=== PATIENT | male | born 1950 | race Caucasian/White ===

== ENCOUNTER → 2021-09-17 | Outpatient (CLI) | payer OTHER, SELFPAY ==
[2021-09-17 10:24] LABS: Pathologist Comment May follow
[2021-09-17 11:19] LABS: Erythrocyte Sedimentation Rate 27 mm/hr (0-20)
[2021-09-17 11:22] LABS: Absolute Lymphocyte Count 1.41 X10^3/uL (0.83-4.51); Absolute Neutrophil Count 3.7 X10^3/uL (2.0-7.7); Basophil# 0.03 X10^3/uL; Basophil% 0.5 % (0-1); Eosinophil# 0.22 X10^3/uL; Eosinophils% 3.6 % (0-5); Hematocrit 43.5 % (40-54); Hemoglobin 14.4 g/dL (13.0-16.5); Lymphocyte # 1.41 X10^3/ul (0.83-4.51); Lymphocyte % 23.1 % (19-41); Mean Corp Hgb Conc 33.1 g/dL (32-36); Mean Corpuscular Hgb 29.3 pg (27.0-32.0); Mean Corpuscular Volume 88.6 fL (80-94); Monocyte# 0.73 X10^3/uL; Monocyte% 11.9 % (0-10); NRBC Flagged by Analyzer 0 % (0-5); Neutrophil % 60.6 % (47-70); Platelet Count 320 K/mm3 (150-450); RBC Distribution Width CV 13.7 % (11.6-14.6); RBC Distribution Width SD 44.4 fl (35.1-43.9); Red Blood Count 4.91 M/mm3 (4.6-6.2); White Blood Count 6.1 K/mm3 (4.4-11.0)
[2021-09-17 11:35] LABS: Synovial Fld Mononuclear WBC # 1.044 10^3/ul; Synovial Fld Polynuclear WBC # 0.347 10^3/uL
[2021-09-17 11:38] LABS: AUTO B FLUID DILUENT BKGD CT WBC <0.1 RBC <0.01 (W<.1,R<.01); Appearance /Synovial Fluid Sl Cl (CLEAR); Color / Synovial Fluid Yellow (Pale Yellow); Source / Synovial Fluid RIGHT KNEE
[2021-09-17 12:11] LABS: Lymph 18 %; Monocyte /Synovial Fluid 48 %; Neutrophil 24 % (0-25); Other Cell /Synovial Fluid 10 %
[2021-09-17 12:12] LABS: RBC /Synovial Fluid 87 /mm3 (0)
[2021-09-17 12:53] LABS: Body Fluid QC Type(s) BF1Q,BF2Q; Source- Body Fluid SYNOVIAL
[2021-09-18 12:17] LABS: Pathologist Review Reviewed
== END | disposition home or self-care (01) ==
LOC: LAB 10:16
PROVIDERS: PCP Orthopaedic Surgery; Referring Provider Physician Assistant; Visit Provider Physician Assistant
DX: M25.461 Effusion, right knee (principal); Z96.651 Presence of right artificial knee joint
CPT/HCPCS: 36415; 85025; 85652; 86140; 87015; 87070; 87075; 87101; 87116; 87205; 87206; 89050; 89051; 89060

== ENCOUNTER → 2022-04-24 | Outpatient (CLI) | payer OTHER, SELFPAY ==
[2022-04-24 12:42] LABS: Absolute Lymphocyte Count 1.16 X10^3/uL (0.83-4.51); Absolute Neutrophil Count 2.9 X10^3/uL (2.0-7.7); Basophil# 0.03 X10^3/uL; Basophil% 0.6 % (0-1); Eosinophil# 0.33 X10^3/uL; Eosinophils% 6.2 % (0-5); Hematocrit 45.5 % (40-54); Hemoglobin 14.6 g/dL (13.0-16.5); Lymphocyte # 1.16 X10^3/ul (0.83-4.51); Lymphocyte % 21.8 % (19-41); Mean Corp Hgb Conc 32.1 g/dL (32-36); Mean Corpuscular Hgb 28.3 pg (27.0-32.0); Mean Corpuscular Volume 88.3 fL (80-94); Mean Platelet Vol. 9.9 fl (6.2-12.0); Monocyte# 0.84 X10^3/uL; Monocyte% 15.8 % (0-10); NRBC Flagged by Analyzer 0 % (0-5); Neutrophil # 2.94 X10^3/uL (2.7-7.7); Neutrophil % 55.4 % (47-70); Platelet Count 304 K/mm3 (150-450); RBC Distribution Width CV 14.9 % (11.6-14.6); RBC Distribution Width SD 48.4 fl (35.1-43.9); Red Blood Count 5.15 M/mm3 (4.6-6.2); White Blood Count 5.3 K/mm3 (4.4-11.0)
[2022-04-24 12:59] LABS: Albumin, Serum 3.4 g/dL (3.2-5.0); Anion Gap 6 (5-15); BUN 19 mg/dL (7-18); BUN/Creat Ratio 26.8 RATIO (10-20); Calcium,Total 9.5 mg/dL (8.5-10.1); Chloride 107 mmol/L (98-107); Creatinine, Serum 0.71 mg/dL (0.70-1.30); EST Glomerular Filtration Rate 117 mL/min (>60); Est Glom Filt Rate - Afr Amer 141 mL/min (>60); Glucose 95 mg/dL (74-106); Potassium 4.2 mmol/L (3.5-5.1); Sodium Level 140 mmol/L (136-145)
== END | disposition home or self-care (01) ==
LOC: LAB 11:11
PROVIDERS: PCP Orthopaedic Surgery; Referring Provider Physician Assistant Surgical; Visit Provider Physician Assistant Surgical
DX: Z01.818 Encounter for other preprocedural examination (principal)
CPT/HCPCS: 36415; 80048; 82040; 85025

== ENCOUNTER → 2022-05-14 | Outpatient (CLI) | payer OTHER, SELFPAY ==
--- NOTE | 2022-05-14 | KNEE_PTH ---
PATIENT: SAMMY PALMA LOC: [facility] U#:[id number] AGE/SX: 72/M ROOM: RE05/14/[address]: Dr. Florentino Mccabe MD : 1950 BED: DIS: 05/14/2022 SPEC #: [id number] RECD: 05/14/22 15:19 STATUS: TONY VALENTE #: [id number] HE: 05/14/22 00:[address]: Florentino Mccabe DEPT: SURGICAL PATHOLOGY RECD BY: Andrew Castro ENTERED: 05/15/22 09:42 SP TYPE: TOTAL KNEE OTHR DR: Dr. Pan Boyd MD [facility] Tissues: Knee, NOS Procedures: Surgery Specimen Level IV HEADER OPERATION: Robotic assisted total left knee arthroplasty PRE-OP DIAGNOSIS: Severe left knee osteoarthritis with varus alignment TISSUE SUBMITTED: Left knee synovium MICROSCOPIC DIAGNOSIS Left knee synovium, excision: Fibroadipose tissue and reactive synovial tissue with acute and chronic inflammation. Focal changes consistent with pseudogout. YAMILKA:pranav 05/18/2022 MICROSCOPIC DESCRIPTION Slides are reviewed. GROSS DESCRIPTION Received in fixative is one container labeled with the patient's name and designated left knee synovium. The specimen consists of an irregular piece of yellowish-pink soft tissue measuring 9.0 x 6.0 x 1.0 cm. Sections do not reveal any mass lesion. [employer] Operator sections are submitted in two cassettes. / YAMILKA:pranav 05/15/2022 TC:2 CPT: 94628
== END | disposition home or self-care (01) ==
LOC: LABSPEC 15:41
PROVIDERS: PCP Orthopaedic Surgery; Referring Provider Specialist; Visit Provider Specialist
DX: M17.12 Unilateral primary osteoarthritis, left knee (principal); M65.9 Synovitis and tenosynovitis, unspecified
CPT/HCPCS: 88305; 88311